=== PATIENT | female | born 2000 | race Caucasian/White ===

== ENCOUNTER 2018-03-31 20:22 | Emergency (ER) | payer OTHER ==
[~2018-03-31] VITALS: Ht 165.1 cm; Wt 92.1 kg
[~2018-03-31 20:22] MED LIST: ABILIFY 5 MG TAB5 M1; ACETAMINOPHEN325 M1 PO; CLARITIN10 MG PO; HYDROXYZINE HCL25 M1; IBUPROFEN 400400 M1 PO; IBUPROFEN 600600 M1 PO; INTUNIV1 MG; KEFLEX500 MG PO; LEXAPRO 10 MG T10 M1 PO; LORTABELXR PO; MECLIZINE HCL12.5 MG PO; MELATONIN1 MG PO; MELATONIN5 M1 PO; NAPROSYN500 MG PO; PREDNISONE 20 M20 MG PO; PROZAC PO; RISPERDAL PO; STRATTERA25 MG; ZOLOFT25 MG
[2018-03-31] MEDS ORDERED: PROAIR HFA8.5 GM INH (21:41)
[2018-03-31 21:59] VITALS: BP 119/57
--- NOTE | 2018-04-01 17:08 | EKG ---
[place] [address] ELECTROCARDIOGRAM REPORT Name: LUKAS GRIMMA Milka Room: [facility]#: [id number] Admission: 03/31/18 Attend Phys: Discharge: 03/31/18 Date of : 89 Report #: [id number] THIS REPORT FOR: //name// [facility] ED Test Date: 2018-03-31 Test Time: 21:12:29 Pat Name: ROSALES GRIMM Department: Room: Gender: F Rn Baby: : 2000 Requested By: Shawnee Riggs Order Number: [id number] MD: Ronak Cheney Measurements Intervals Mason Rate: 103 P: 48 UT: 161 QRS: 44 QRSD: 85 T: 11 QT: 329 QTc: 431 Interpretive Statements Sinus tachycardia Compared to ECG 01/06/2012 15:51:37 Sinus rhythm no longer present Electronically Signed On 04-01-2018 17:08:06 CDT by Ronak Cheney [email or web address] <ELECTRONICALLY SIGNED> By: Ronak Cheney MD, [facility] 04/01/18 1708 11 11 Ronak Cheney MD, FAC /EPI
== END 2018-03-31 22:00 | disposition home or self-care (01) ==
LOC: M.ERS 20:22
DX: J02.9 Acute pharyngitis, unspecified (principal); J30.2 Other seasonal allergic rhinitis; F41.9 Anxiety disorder, unspecified; F90.9 Attention-deficit hyperactivity disorder, unspecified type; Z88.6 Allergy status to analgesic agent

== ENCOUNTER 2019-03-21 20:23 | Emergency (ER) | payer OTHER ==
[~2019-03-21] VITALS: Ht 165.1 cm; Wt 99.8 kg
[~2019-03-21 20:23] MED LIST changes: +PROAIR HFA8.5 GM INH
[2019-03-21 20:53] LABS: URINE BILIRUBIN NEGATIVE (Negative); URINE BLOOD 1+ (Negative); URINE CLARITY CLEAR; URINE COLOR YELLOW; URINE GLUCOSE-RANDOM NEGATIVE (Negative); URINE KETONES NEGATIVE (Negative); URINE LEUKOCYTES-REFLEX NEGATIVE (Negative); URINE NITRITE-REFLEX NEGATIVE (Negative); URINE PROTEIN TRACE (Negative); URINE SPECIFIC GRAVITY >= 1.030 (1.005-1.030); URINE UROBILINOGEN 0.2 E.U./dl (0.2-1.0)
[2019-03-21 20:58] LABS: SQUAMOUS >10 Many /LPF (0-3)
[2019-03-21 20:59] LABS: BACTERIA-REFLEX 1-9 Few /HPF (None Seen); CASTS None Seen /LPF (None Seen); CRYSTALS None Seen /LPF (None Seen); URINE RBC 0-2 Rare /HPF (0-2); URINE WBC-REFLEX 0-5 Rare /HPF (0-5)
[2019-03-21 21:03] LABS: ABSOLUTE BASOPHILS 0.1 thou/uL (0.0-0.2); ABSOLUTE EOSINOPHILS 0.2 thou/uL (0.0-0.7); ABSOLUTE LYMPHOCYTES 3.3 thou/uL (0.8-5.3); ABSOLUTE MONOCYTES 0.6 thou/uL (0.0-1.2); BASOPHILS 0.8 %; EOSINOPHILS 1.8 %; HEMATOCRIT 37.4 % (37.0-47.0); HEMOGLOBIN 12.5 gm/dL (12.0-15.0); LYMPHOCYTES 32.5 %; MCH 25.7 pg (26.0-34.0); MCHC 33.4 g/dL (28.0-37.0); MCV 76.9 fL (80.0-100.0); MONOCYTES 6.1 %; MPV 7.8 fl. (7.2-11.1); NUCLEATED RBCS 0 /100WBC; PLATELET COUNT* 380 thou/uL (150-400); POLYS 58.8 %; RBC 4.86 mil/uL (4.20-5.00); RDW-CV 14.4 % (10.5-14.5); WBC 10.1 thou/uL (4.0-11.0)
[2019-03-21 21:10] LABS: CALCIUM 8.9 mg/dL (8.5-10.1); CREATININE 0.8 mg/dL (0.6-1.3); POTASSIUM 3.6 mmol/L (3.5-5.1)
[2019-03-21 21:15] LABS: ALBUMIN 3.9 g/dL (3.4-5.0); TOTAL BILIRUBIN 0.2 mg/dL (<0.1-1.0); TOTAL PROTEIN 7.8 g/dL (6.4-8.2)
[2019-03-21] MEDS ORDERED: ONDANSETRON HCL4 M2 PO (21:19)
[2019-03-21 21:27] VITALS: BP 111/74
== END 2019-03-21 21:28 | disposition home or self-care (01) ==
LOC: M.ERS 20:23
PROVIDERS: Physician Assistant
DX: R11.2 Nausea with vomiting, unspecified (principal); R10.30 Lower abdominal pain, unspecified; Z32.02 Encounter for pregnancy test, result negative; F90.9 Attention-deficit hyperactivity disorder, unspecified type; F41.9 Anxiety disorder, unspecified; Z88.8 Allergy status to other drugs, medicaments and biological substances

== ENCOUNTER 2019-06-01 12:58 | Emergency (ER) | payer OTHER ==
[~2019-06-01] VITALS: Ht 165.1 cm; Wt 68.0 kg
[~2019-06-01 12:58] MED LIST changes: +ONDANSETRON HCL4 M2 PO
[2019-06-01] MEDS ORDERED: BACTRIM DS TAB1 EACH PO (13:20)
[2019-06-01] MEDS ORDERED: KEFLEX500 M1 PO (13:55)
[2019-06-01] MEDS ORDERED: ACETAMINOPHEN-1 EAC1 PO (13:55)
[2019-06-01 14:07] VITALS: BP 107/75
== END 2019-06-01 14:13 | disposition home or self-care (01) ==
LOC: M.ERS 12:58
DX: L02.411 Cutaneous abscess of right axilla (principal); F90.9 Attention-deficit hyperactivity disorder, unspecified type; F41.9 Anxiety disorder, unspecified; Z88.1 Allergy status to other antibiotic agents; Z88.8 Allergy status to other drugs, medicaments and biological substances

== ENCOUNTER 2019-06-05 11:08 | Emergency (ER) | payer OTHER ==
[~2019-06-05] VITALS: Ht 165.1 cm; Wt 58.5 kg
[~2019-06-05 11:08] MED LIST changes: +ACETAMINOPHEN-1 EAC1 PO; +BACTRIM DS TAB1 EACH PO; +KEFLEX500 M1 PO
[2019-06-05] MEDS ORDERED: DOXYCYCLINE 10100 MG PO (12:30)
[2019-06-05] MEDS ORDERED: TRAMADOL 50 MG50 MG PO (12:41)
[2019-06-05 12:49] VITALS: BP 129/88
== END 2019-06-05 12:49 | disposition home or self-care (01) ==
LOC: M.ERS 11:08
DX: L02.411 Cutaneous abscess of right axilla (principal); F41.9 Anxiety disorder, unspecified; F90.9 Attention-deficit hyperactivity disorder, unspecified type; Z88.1 Allergy status to other antibiotic agents; Z88.8 Allergy status to other drugs, medicaments and biological substances

== ENCOUNTER 2020-03-12 07:28 | Emergency (ER) | payer OTHER ==
[~2020-03-12] VITALS: Ht 165.1 cm; Wt 100.7 kg
[~2020-03-12 07:28] MED LIST changes: +DOXYCYCLINE 10100 MG PO; +TRAMADOL 50 MG50 MG PO
[2020-03-12] MEDS ORDERED: NORCO 5-325 TA1 EAC1 PO (08:13)
[2020-03-12] MEDS ORDERED: BACTRIM DS TAB1 EACH PO (08:13)
[2020-03-12 08:27] VITALS: BP 120/70
== END 2020-03-12 08:27 | disposition home or self-care (01) ==
LOC: M.ERS 07:28
DX: L02.412 Cutaneous abscess of left axilla (principal); Z88.1 Allergy status to other antibiotic agents; Z88.8 Allergy status to other drugs, medicaments and biological substances